=== PATIENT | female | born 2000 | race Caucasian/White ===

== ENCOUNTER 2023-09-01 16:55 | Inpatient (IN) | payer BC ==
[2023-09-01] MEDS ORDERED: hydrALAZINE 20 MG/ML VIAL SLOW IVP PRN (17:41)
[2023-09-01] MEDS ORDERED: fentaNYL 50 mcg/mL 1 mL Vial SLOW IVP PRN (17:41)
[2023-09-01] MEDS ORDERED: Ondansetron PF 4 MG/2 ML Vial IVP PRN (17:41)
[2023-09-01] MEDS ORDERED: Tranexamic Acid 1,000 MG/10 ML VIAL IVP PRN (17:41)
[2023-09-01] MEDS ORDERED: Ibuprofen 800 MG TAB PO PRN (17:41)
[2023-09-01] MEDS ORDERED: Acetaminophen 500 MG TAB PO PRN (17:41)
[2023-09-01] MEDS ORDERED: Carboprost 250 MCG/ML AMP IM PRN (17:41)
[2023-09-01] MEDS ORDERED: Diphenoxylate HCl/Atropine Tablet PO PRN ×2 (17:41)
[2023-09-01] MEDS ORDERED: Promethazine HCl 25 MG/ML VIAL IM PRN (17:41)
[2023-09-01] MEDS ORDERED: Lidocaine 1% (PF) 30 ML VIAL SC PRN (17:41)
[2023-09-01] MEDS ORDERED: Misoprostol 200 MCG TAB PR PRN (17:41)
[2023-09-01] MEDS ORDERED: HYDROcodone/Acetaminophen 5/325 mg Tablet PO PRN ×2 (17:41)
[2023-09-01] MEDS ORDERED: Methylergonovine 0.2 MG/ML VIAL IM PRN (17:41)
[2023-09-01] MEDS ORDERED: Lactated Ringer's 1,000 ML IV SCH (17:45)
[2023-09-01] MEDS ORDERED: Oxytocin 30 units/NS 500 ML 500 ML IV SCH ×2 (17:45)
[2023-09-01 18:08] LABS: Hematocrit 35.9 % (34.9-44.5); Hemoglobin 13.2 g/dL (12.0-15.5); Mean Corpuscular HGB CONC 36.8 g/dL (32.0-36.0); Mean Corpuscular Hemoglobin 34.4 pg (27.0-33.0); Mean Corpuscular Volume 93.5 fl (81.6-98.3); Mean Platelet Volume 12.4 fl (7.4-10.4); Platelet Count 165 10x3/uL (150-450); Red Blood Cell (RBC) Count 3.84 10x6/uL (3.90-5.03); White Blood Cell (WBC) Count 11.2 10x3/uL (3.5-10.5)
[2023-09-01 18:41] LABS: Syphilis Antibody Nonreactive (Nonreactive); Syphilis Antibody Index 0.03 S/CO (<1.00 Non-Reactive)
[2023-09-01 18:42] LABS: HBSAg Index 0.28 S/CO (0-0.99); Hep B Surf Ag - L&D Non-Reactive S/CO (NonReactive)
[2023-09-01] MEDS ORDERED: fentaNYL/Ropivacaine Epidural 100 ML ONE (23:43)
[2023-09-02] MEDS ORDERED: PHENYLEPHRINE-NS 100 MCG/ML 10 ML SYRINGE ONE (00:40)
[2023-09-02] MEDS ORDERED: Promethazine HCl 25 MG/ML VIAL IM PRN (00:49)
[2023-09-02] MEDS ORDERED: ePHEDrine Sulfate 50 MG/10 ML VIAL SLOW IVP PRN (00:49)
[2023-09-02] MEDS ORDERED: diphenhydrAMINE 50 MG/ML VIAL IVP PRN (00:49)
[2023-09-02] MEDS ORDERED: Naloxone HCl 0.4 mg/ml Vial IVP PRN ×2 (00:49)
[2023-09-02] MEDS ORDERED: Moisturizing Cream (Eucerin) 113 GM JAR TOP PRN (00:49)
[2023-09-02] MEDS ORDERED: Lactated Ringer's 500 ML IV PRN (00:49)
[2023-09-02] MEDS ORDERED: Ondansetron PF 4 MG/2 ML Vial IVP PRN (00:49)
[2023-09-02] MEDS ORDERED: Acetaminophen 325 MG TAB PO PRN (00:49)
[2023-09-02] MEDS ORDERED: Communication Order-Pharmacy FS SCH (01:00)
[2023-09-02] MEDS ORDERED: fentaNYL 2 mcg/Ropivacaine 0.2% Epidural 100 ML CADD EPIDURAL SCH (01:00)
[2023-09-02] MEDS ORDERED: Bupivacaine 0.25% HCL 30 ML VIAL ONE (07:00)
[2023-09-02] MEDS ORDERED: ePHEDrine Sulfate 50 MG/10 ML VIAL ONE (07:00)
[2023-09-02] MEDS ORDERED: Boostrix 0.5 ML (Tdap) VIAL (>/=7 yrs of age) IM ONE (08:55)
[2023-09-02] MEDS ORDERED: hydrALAZINE 20 MG/ML VIAL SLOW IVP PRN (08:55)
[2023-09-02] MEDS ORDERED: Milk Of Magnesia 30 ML UDCUP PO PRN (08:55)
[2023-09-02] MEDS ORDERED: Bisacodyl 10 MG SUPP PR PRN (08:55)
[2023-09-02] MEDS: Docusate 100 MG CAP PO SCH ×2 (11:04→21:28)
[2023-09-02] MEDS: Ferrous Sulfate 325 MG TAB PO SCH (16:06)
[2023-09-02] MEDS: Ibuprofen 800 MG TAB PO SCH (18:26)
[2023-09-02] MEDS ORDERED: Benzocaine-Menthol 82.5 ML CAN TOP PRN (21:56)
[2023-09-03] MEDS: Ibuprofen 800 MG TAB PO SCH ×4 (01:46→18:26)
[2023-09-03 05:16] LABS: #Basophils 0.1 10x3/uL (0.0-0.2); #Eosinphils 0.1 10x3/uL (0.0-0.5); #Monocytes 0.9 10x3/uL (0.0-1.1); #Neutrophils 10.1 10x3/uL (1.5-8.4); %Basophils 0.3 % (0.0-2.0); %Eosinophils 0.5 % (0.0-6.0); %Lymphocytes 23.2 % (18.0-47.0); %Monocytes 6.3 % (0.0-10.0); Hematocrit 32.5 % (34.9-44.5); Hemoglobin 11.3 g/dL (12.0-15.5); Mean Corpuscular HGB CONC 34.8 g/dL (32.0-36.0); Mean Corpuscular Volume 97.9 fl (81.6-98.3); Mean Platelet Volume 12.8 fl (7.4-10.4); Platelet Count 154 10x3/uL (150-450); RBC Distribution Width 12.3 % (11.5-14.5); Red Blood Cell (RBC) Count 3.32 10x6/uL (3.90-5.03); White Blood Cell (WBC) Count 14.7 10x3/uL (3.5-10.5)
[2023-09-03] MEDS: Docusate 100 MG CAP PO SCH ×2 (10:51→21:12)
[2023-09-03] MEDS: Ferrous Sulfate 325 MG TAB PO SCH ×2 (10:51→17:10)
[2023-09-04] MEDS: Ibuprofen 800 MG TAB PO SCH ×2 (01:31→08:48)
[2023-09-04] MEDS: Ferrous Sulfate 325 MG TAB PO SCH (07:28)
[2023-09-04 08:06] VITALS: BP 128/74; TEMP 98.4
[2023-09-04] MEDS: Docusate 100 MG CAP PO SCH (08:47)
== END 2023-09-04 11:35 | disposition home or self-care (01) | DRG 807 ==
LOC: CSHLD/OP 16:55 → CSHLD 17:32 → CSHPP 09-02 10:36
PROVIDERS: ADMIT Obstetrics & Gynecology; ATTEND Obstetrics & Gynecology
PROC: 10E0XZZ Delivery of Products of Conception, External Approach (ICD-10-PCS; principal; 2023-09-02)
PROC: 0KQM0ZZ Repair Perineum Muscle, Open Approach (ICD-10-PCS; 2023-09-02)
DX: O77.0 Labor and delivery complicated by meconium in amniotic fluid (principal); Z37.0 Single live birth; Z3A.40 40 weeks gestation of pregnancy; Z88.1 Allergy status to other antibiotic agents; O70.1 Second degree perineal laceration during delivery
CPT/HCPCS: 36415; 51702; 85025; 85027; 86780; 86850; 86900; 86901; 87340; 99285; J2001; J2590; S0020